=== PATIENT | male | born 1965 | race Caucasian/White ===

== ENCOUNTER 2017-10-11 12:36 | Emergency (ER) | payer OTHER ==
[~2017-10-11] VITALS: Ht 188 cm; Wt 92.0 kg
[~2017-10-11 12:36] MED LIST: CLIN-26 PO; NO HOME MEDS
[2017-10-11] MEDS ORDERED: PRED10TA23 PO (13:27)
[2017-10-11] MEDS ORDERED: AZIT-63 PO (13:27)
[2017-10-11] MEDS ORDERED: HYDR-565 PO (13:27)
[2017-10-11 13:44] VITALS: BP 103/66
== END 2017-10-11 13:52 | disposition home or self-care (01) ==
LOC: ER 12:37
DX: R05 Cough (principal); R07.81 Pleurodynia; J45.909 Unspecified asthma, uncomplicated
CPT/HCPCS: 99283

== ENCOUNTER 2017-10-18 01:40 | Inpatient (IN) | payer OTHER ==
[~2017-10-18] VITALS: Ht 188 cm; Wt 92.1 kg
[~2017-10-18 01:40] MED LIST changes: +AZIT-63 PO; +PRED10TA23 PO
[2017-10-18] MEDS ORDERED: ketorolac trometh inj. 60 MG/2 ML VIAL IM ONE (02:35)
[2017-10-18] MEDS ORDERED: ipratropium/albuterol 3ml nebule NEB ONE (03:25)
[2017-10-18] MEDS ORDERED: benzonatate 100mg capsule PO ONE (03:50)
[2017-10-18 03:52] LABS: BASOPHILS # (AUTO) 0.1 X10'3 (0-0.2); BASOPHILS % (AUTO) 0.7 % (0-1); EOSINOPHILS # (AUTO) 0.7 X10'3 (0-0.9); EOSINOPHILS % (AUTO) 6.2 % (0-6); HEMATOCRIT 37.5 % (42.0-52.0); HEMOGLOBIN 13.1 g/dl (14.0-17.9); LYMPHOCYTES % (AUTO) 17.1 % (21-51); MEAN CORPUSCULAR HEMOGLOBIN 28.3 PG (27.0-31.0); MEAN PLATELET VOLUME 7.1 FL (7.4-10.4); MONOCYTES # (AUTO) 0.7 X10'3 (0-0.9); MONOCYTES % (AUTO) 5.8 % (2-12); NEUTROPHILS # (AUTO) 8.1 X10'3 (1.8-7.7); NEUTROPHILS % (AUTO) 70.2 % (42-75); PLATELET COUNT 445 X10'3 (140-440); RED BLOOD COUNT 4.64 X10'6 (4.70-6.10); RED CELL DISTRIBUTION WIDTH 15.1 % (11.5-14.5); WHITE BLOOD COUNT 11.5 X10'3 (4.5-11.0)
[2017-10-18] MEDS ORDERED: azithromycin/NS 500mg/250ml 250 ML IV ONE (03:55)
[2017-10-18] MEDS ORDERED: normal saline 1000ML IV soln IVB ONE (03:55)
[2017-10-18] MEDS ORDERED: CefTRIAXone 2gm/NS 100ml IVPB 100 ML IV ONE (03:55)
[2017-10-18 04:10] LABS: D-DIMER 4.62 MG/L FEU (0-0.50); PROTHROMBIN TIME 10.6 SECONDS (9.0-12.0)
[2017-10-18 04:17] LABS: ALANINE AMINOTRANSFERASE 31 U/L (12-78); ALBUMIN 2.5 G/DL (3.4-5.0); ALBUMIN/GLOBULIN RATIO 0.5 (1.1-1.5); ALKALINE PHOSPHATASE 91 IU/L (46-116); ANION GAP 10 (8-16); ASPARTATE AMINO TRANSFERASE 13 U/L (10-37); BILIRUBIN,TOTAL 0.5 MG/DL (0.1-1.0); BLOOD UREA NITROGEN 15 MG/DL (7-18); BUN/CREATININE RATIO 17.2 (5.4-32.0); CALCIUM 8.7 MG/DL (8.5-10.1); CHLORIDE 101 MMOL/L (99-107); CREATININE 0.87 MG/DL (0.60-1.10); GLUCOSE 96 MG/DL (70-104); SODIUM 137 MMOL/L (135-145); TOTAL PROTEIN 7.4 G/DL (6.4-8.2); TROPONIN I < 0.04 NG/ML (0.0-0.05); eGFR > 90 ML/MIN
[2017-10-18] MEDS ORDERED: iohexol 350MG/ML 100ml bottle IV ONE (04:53)
[2017-10-18] MEDS ORDERED: enoxaparin 100mg/ml syringe SUBCUT ONE (05:25)
[2017-10-18] MEDS ORDERED: magnesium Cl slow-release 64mg tablet PO PRN (09:20)
[2017-10-18] MEDS ORDERED: ondansetron/PF 4mg/2ml inj IV PRN (09:20)
[2017-10-18] MEDS ORDERED: cefTRIAXone 1g/NS 100ml IVPB 100 ML IV ONE (09:20)
[2017-10-18] MEDS ORDERED: acetaminophen 325mg tablet PO PRN (09:20)
[2017-10-18] MEDS ORDERED: magnesium 2GM in 50ml NS 50 ML IV PRN (09:20)
[2017-10-18] MEDS ORDERED: mag hydrox/Alum hydrox/simeth 30ml oral suspension PO PRN (09:20)
[2017-10-18] MEDS ORDERED: doxycycline inj 100 MG in normal saline 100ml IV soln 100 ML IV ONE (09:20)
[2017-10-18] MEDS ORDERED: potassium Cl 20 mEq SR tablet PO PRN ×2 (09:20)
[2017-10-18] MEDS ORDERED: morphine 2 MG/ML inj. syringe IV PRN ×2 (09:20)
[2017-10-18] MEDS ORDERED: magnesium 4gm in 100ml NS 100 ML IV PRN (09:20)
[2017-10-18] MEDS ORDERED: magnesium hydroxide 30ml (MOM) UD suspension PO PRN (09:20)
[2017-10-18] MEDS ORDERED: potassium Cl 40MEQ/NS 500ml 500 ML IV PRN ×2 (09:20)
[2017-10-18 10:16] LABS: HEMATOCRIT 38.7 % (42.0-52.0); HEMOGLOBIN 13.2 g/dl (14.0-17.9); MEAN CORPUSCULAR HEMOGLOBIN 28.1 PG (27.0-31.0); MEAN CORPUSCULAR HGB CONC 34.2 % (33.0-36.5); MEAN CORPUSCULAR VOLUME 82.1 FL (78-98); PLATELET COUNT 475 X10'3 (140-440); RED BLOOD COUNT 4.71 X10'6 (4.70-6.10); RED CELL DISTRIBUTION WIDTH 15.4 % (11.5-14.5); WHITE BLOOD COUNT 8.5 X10'3 (4.5-11.0)
[2017-10-18 10:25] LABS: PROTHROMBIN TIME 10.7 SECONDS (9.0-12.0)
[2017-10-18 10:27] LABS: BLOOD UREA NITROGEN 16 MG/DL (7-18); CREATININE 0.95 MG/DL (0.60-1.10); eGFR 83 ML/MIN
[2017-10-18] MEDS ORDERED: albuterol 2.5 MG/3 ML nebule ONE (10:58)
[2017-10-18] MEDS: albuterol 2.5 MG/3 ML nebule NEB SCH ×4 (10:59→23:38)
[2017-10-18 11:05] VITALS: BP 130/72
[2017-10-18] MEDS: lactobacillus rhamnosus 10,000 MMU CELLS/CAPSULE PO SCH (17:37)
[2017-10-18 18:50] VITALS: BP 114/69
[2017-10-18] MEDS: enoxaparin 30mg/0.3ml syringe SUBCUT SCH (20:08)
[2017-10-18] MEDS: enoxaparin 60mg/0.6ml syringe SUBCUT SCH (20:09)
[2017-10-18] MEDS: doxycycline inj 100 MG in normal saline 100ml IV soln 100 ML IV SCH (20:17)
[2017-10-18] MEDS ORDERED: warfarin 5mg tablet PO ONE (21:00)
[2017-10-18] MEDS: HYDROcodone/acetaminophen 10/325mg tab PO PRN (21:42)
[2017-10-18 23:00] VITALS: BP 130/73
[2017-10-19] MEDS: albuterol 2.5 MG/3 ML nebule NEB SCH ×3 (03:34→10:55)
[2017-10-19 05:52] LABS: BASOPHILS % (AUTO) 0.4 % (0-1); EOSINOPHILS # (AUTO) 0.5 X10'3 (0-0.9); EOSINOPHILS % (AUTO) 5.1 % (0-6); HEMATOCRIT 38.6 % (42.0-52.0); HEMOGLOBIN 13.4 g/dl (14.0-17.9); LYMPHOCYTES # (AUTO) 1.6 X10'3 (1.1-4.8); LYMPHOCYTES % (AUTO) 15.4 % (21-51); MEAN CORPUSCULAR HEMOGLOBIN 28.2 PG (27.0-31.0); MEAN CORPUSCULAR HGB CONC 34.7 % (33.0-36.5); MEAN CORPUSCULAR VOLUME 81.5 FL (78-98); MONOCYTES # (AUTO) 0.6 X10'3 (0-0.9); MONOCYTES % (AUTO) 5.9 % (2-12); NEUTROPHILS # (AUTO) 7.4 X10'3 (1.8-7.7); NEUTROPHILS % (AUTO) 73.2 % (42-75); PLATELET COUNT 475 X10'3 (140-440); RED BLOOD COUNT 4.74 X10'6 (4.70-6.10); RED CELL DISTRIBUTION WIDTH 14.8 % (11.5-14.5); WHITE BLOOD COUNT 10.1 X10'3 (4.5-11.0)
[2017-10-19 06:03] LABS: PARTIAL THROMBOPLASTIN TIME 33 SECONDS (22-32); PROTHROMBIN TIME 10.5 SECONDS (9.0-12.0)
[2017-10-19 06:28] LABS: ALANINE AMINOTRANSFERASE 30 U/L (12-78); ALBUMIN 2.1 G/DL (3.4-5.0); ALBUMIN/GLOBULIN RATIO 0.4 (1.1-1.5); ALKALINE PHOSPHATASE 91 IU/L (46-116); ANION GAP 8 (8-16); ASPARTATE AMINO TRANSFERASE 16 U/L (10-37); BILIRUBIN,TOTAL 0.3 MG/DL (0.1-1.0); BLOOD UREA NITROGEN 12 MG/DL (7-18); BUN/CREATININE RATIO 12.2 (5.4-32.0); CALCIUM 8.6 MG/DL (8.5-10.1); CHLORIDE 103 MMOL/L (99-107); CHOL/HDL RATIO 3.9 (0.00-4.99); CHOLESTEROL 109 MG/DL (0-200); CREATININE 0.98 MG/DL (0.60-1.10); GLUCOSE 106 MG/DL (70-104); HDL CHOLESTEROL 28 MG/DL (35-60); LDL CHOLESTEROL 71 MG/DL (50-100); MAGNESIUM 1.9 MG/DL (1.5-2.4); POTASSIUM 4.4 MMOL/L (3.5-5.1); SODIUM 137 MMOL/L (135-145); TOTAL CARBON DIOXIDE 26.2 MMOL/L (24-32); TOTAL PROTEIN 6.9 G/DL (6.4-8.2); TRIGLYCERIDES 77 MG/DL (20-135); eGFR 80 ML/MIN
[2017-10-19 07:00] VITALS: BP 128/71
[2017-10-19] MEDS: K and/or MAG REPLACEMENT MC SCH (07:59)
[2017-10-19] MEDS: enoxaparin 60mg/0.6ml syringe SUBCUT SCH ×2 (08:05→21:04)
[2017-10-19] MEDS: enoxaparin 30mg/0.3ml syringe SUBCUT SCH ×2 (08:06→21:04)
[2017-10-19] MEDS: cefTRIAXone 1g/NS 100ml IVPB 100 ML IV SCH (08:06)
[2017-10-19] MEDS: lactobacillus rhamnosus 10,000 MMU CELLS/CAPSULE PO SCH ×2 (08:06→17:11)
[2017-10-19] MEDS: doxycycline inj 100 MG in normal saline 100ml IV soln 100 ML IV SCH ×2 (10:55→11:18)
[2017-10-19 11:00] VITALS: BP 115/62
[2017-10-19] MEDS: HYDROcodone/acetaminophen 10/325mg tab PO PRN ×2 (11:43→21:02)
[2017-10-19] MEDS: doxycycline hyclate 100mg tablet.DR PO SCH (17:11)
[2017-10-19 18:50] VITALS: BP 125/71
[2017-10-19] MEDS ORDERED: warfarin 5mg tablet PO ONE (21:00)
[2017-10-20] MEDS: HYDROcodone/acetaminophen 10/325mg tab PO PRN ×4 (02:05→23:47)
[2017-10-20 05:41] LABS: BASOPHILS % (AUTO) 0.4 % (0-1); EOSINOPHILS # (AUTO) 0.6 X10'3 (0-0.9); EOSINOPHILS % (AUTO) 5.8 % (0-6); HEMATOCRIT 39.5 % (42.0-52.0); HEMOGLOBIN 13.6 g/dl (14.0-17.9); LYMPHOCYTES # (AUTO) 1.6 X10'3 (1.1-4.8); LYMPHOCYTES % (AUTO) 16.5 % (21-51); MEAN CORPUSCULAR HEMOGLOBIN 28.1 PG (27.0-31.0); MEAN CORPUSCULAR HGB CONC 34.4 % (33.0-36.5); MEAN CORPUSCULAR VOLUME 81.5 FL (78-98); MONOCYTES # (AUTO) 0.7 X10'3 (0-0.9); MONOCYTES % (AUTO) 6.7 % (2-12); NEUTROPHILS # (AUTO) 6.8 X10'3 (1.8-7.7); NEUTROPHILS % (AUTO) 70.6 % (42-75); PLATELET COUNT 496 X10'3 (140-440); RED BLOOD COUNT 4.84 X10'6 (4.70-6.10); RED CELL DISTRIBUTION WIDTH 14.7 % (11.5-14.5); WHITE BLOOD COUNT 9.6 X10'3 (4.5-11.0)
[2017-10-20 06:02] LABS: PARTIAL THROMBOPLASTIN TIME 34 SECONDS (22-32); PROTHROMBIN TIME 10.6 SECONDS (9.0-12.0)
[2017-10-20 06:29] LABS: HEMOGLOBIN A1C 6.3 % (4.5-6.2)
[2017-10-20 06:34] LABS: ALANINE AMINOTRANSFERASE 35 U/L (12-78); ALBUMIN 2.3 G/DL (3.4-5.0); ALBUMIN/GLOBULIN RATIO 0.5 (1.1-1.5); ALKALINE PHOSPHATASE 100 IU/L (46-116); ANION GAP 8 (8-16); ASPARTATE AMINO TRANSFERASE 18 U/L (10-37); BILIRUBIN,TOTAL 0.3 MG/DL (0.1-1.0); BLOOD UREA NITROGEN 14 MG/DL (7-18); BUN/CREATININE RATIO 11.8 (5.4-32.0); CALCIUM 8.9 MG/DL (8.5-10.1); CHLORIDE 100 MMOL/L (99-107); CREATININE 1.19 MG/DL (0.60-1.10); GLUCOSE 98 MG/DL (70-104); POTASSIUM 4.3 MMOL/L (3.5-5.1); SODIUM 137 MMOL/L (135-145); TOTAL CARBON DIOXIDE 28.6 MMOL/L (24-32); TOTAL PROTEIN 7.4 G/DL (6.4-8.2); eGFR 64 ML/MIN
[2017-10-20] MEDS: acetaminophen 325mg tablet PO PRN (06:50)
[2017-10-20] MEDS: doxycycline hyclate 100mg tablet.DR PO SCH ×2 (06:50→16:57)
[2017-10-20] MEDS: lactobacillus rhamnosus 10,000 MMU CELLS/CAPSULE PO SCH ×2 (06:51→16:57)
[2017-10-20 07:30] VITALS: BP 118/77
[2017-10-20] MEDS: K and/or MAG REPLACEMENT MC SCH (08:00)
[2017-10-20] MEDS: enoxaparin 60mg/0.6ml syringe SUBCUT SCH ×2 (08:29→20:53)
[2017-10-20] MEDS: enoxaparin 30mg/0.3ml syringe SUBCUT SCH ×2 (08:30→20:54)
[2017-10-20] MEDS: cefTRIAXone 1g/NS 100ml IVPB 100 ML IV SCH (08:38)
[2017-10-20 11:00] VITALS: BP 113/69
[2017-10-20 18:40] VITALS: BP 132/67
[2017-10-20] MEDS ORDERED: warfarin 7.5mg tablet PO ONE (21:00)
[2017-10-20] MEDS: albuterol 2.5 MG/3 ML nebule NEB PRN (22:17)
[2017-10-21] VITALS: BP 106/65
[2017-10-21 05:14] LABS: BASOPHILS % (AUTO) 0.5 % (0-1); EOSINOPHILS # (AUTO) 0.5 X10'3 (0-0.9); EOSINOPHILS % (AUTO) 5.2 % (0-6); HEMOGLOBIN 14.5 g/dl (14.0-17.9); LYMPHOCYTES # (AUTO) 1.9 X10'3 (1.1-4.8); LYMPHOCYTES % (AUTO) 21.4 % (21-51); MEAN CORPUSCULAR HEMOGLOBIN 27.6 PG (27.0-31.0); MEAN CORPUSCULAR HGB CONC 33.8 % (33.0-36.5); MEAN CORPUSCULAR VOLUME 81.8 FL (78-98); MONOCYTES # (AUTO) 0.6 X10'3 (0-0.9); MONOCYTES % (AUTO) 6.7 % (2-12); NEUTROPHILS # (AUTO) 5.8 X10'3 (1.8-7.7); NEUTROPHILS % (AUTO) 66.2 % (42-75); PLATELET COUNT 561 X10'3 (140-440); RED BLOOD COUNT 5.26 X10'6 (4.70-6.10); RED CELL DISTRIBUTION WIDTH 14.9 % (11.5-14.5); WHITE BLOOD COUNT 8.7 X10'3 (4.5-11.0)
[2017-10-21 05:33] LABS: INR 1.1 INR; PARTIAL THROMBOPLASTIN TIME 34 SECONDS (22-32); PROTHROMBIN TIME 11.8 SECONDS (9.0-12.0)
[2017-10-21 05:39] LABS: ALANINE AMINOTRANSFERASE 128 U/L (12-78); ALBUMIN 2.5 G/DL (3.4-5.0); ALBUMIN/GLOBULIN RATIO 0.5 (1.1-1.5); ALKALINE PHOSPHATASE 147 IU/L (46-116); ANION GAP 5 (8-16); ASPARTATE AMINO TRANSFERASE 87 U/L (10-37); BILIRUBIN,TOTAL 0.2 MG/DL (0.1-1.0); BLOOD UREA NITROGEN 12 MG/DL (7-18); CHLORIDE 100 MMOL/L (99-107); CREATININE 1.09 MG/DL (0.60-1.10); GLUCOSE 96 MG/DL (70-104); MAGNESIUM 2.1 MG/DL (1.5-2.4); POTASSIUM 4.9 MMOL/L (3.5-5.1); SODIUM 136 MMOL/L (135-145); TOTAL CARBON DIOXIDE 31.3 MMOL/L (24-32); TOTAL PROTEIN 7.8 G/DL (6.4-8.2); eGFR 71 ML/MIN
[2017-10-21] MEDS: albuterol 2.5 MG/3 ML nebule NEB PRN ×2 (07:22→21:13)
[2017-10-21 07:38] VITALS: BP 104/66
[2017-10-21] MEDS: K and/or MAG REPLACEMENT MC SCH (08:00)
[2017-10-21] MEDS: cefTRIAXone 1g/NS 100ml IVPB 100 ML IV SCH (08:29)
[2017-10-21] MEDS: doxycycline hyclate 100mg tablet.DR PO SCH ×2 (08:30→17:49)
[2017-10-21] MEDS: lactobacillus rhamnosus 10,000 MMU CELLS/CAPSULE PO SCH ×2 (08:30→17:47)
[2017-10-21] MEDS: enoxaparin 30mg/0.3ml syringe SUBCUT SCH ×2 (08:33→21:16)
[2017-10-21] MEDS: enoxaparin 60mg/0.6ml syringe SUBCUT SCH ×2 (08:34→21:15)
[2017-10-21 20:00] VITALS: BP 122/43
[2017-10-21] MEDS ORDERED: warfarin 10mg tablet PO ONE (21:00)
[2017-10-22] VITALS: BP 105/64
[2017-10-22 05:40] LABS: INR 1.2 INR; PROTHROMBIN TIME 12.1 SECONDS (9.0-12.0)
[2017-10-22 05:45] LABS: BASOPHILS # (AUTO) 0.1 X10'3 (0-0.2); BASOPHILS % (AUTO) 0.6 % (0-1); EOSINOPHILS # (AUTO) 0.4 X10'3 (0-0.9); EOSINOPHILS % (AUTO) 4.5 % (0-6); HEMATOCRIT 44.6 % (42.0-52.0); HEMOGLOBIN 15.1 g/dl (14.0-17.9); LYMPHOCYTES # (AUTO) 1.9 X10'3 (1.1-4.8); MEAN CORPUSCULAR HEMOGLOBIN 27.5 PG (27.0-31.0); MEAN CORPUSCULAR HGB CONC 33.9 % (33.0-36.5); MEAN CORPUSCULAR VOLUME 81.1 FL (78-98); MEAN PLATELET VOLUME 6.9 FL (7.4-10.4); MONOCYTES # (AUTO) 0.7 X10'3 (0-0.9); NEUTROPHILS % (AUTO) 65.9 % (42-75); PLATELET COUNT 611 X10'3 (140-440); RED CELL DISTRIBUTION WIDTH 14.9 % (11.5-14.5); WHITE BLOOD COUNT 9.1 X10'3 (4.5-11.0)
[2017-10-22 05:58] LABS: ALANINE AMINOTRANSFERASE 322 U/L (12-78); ALBUMIN 2.7 G/DL (3.4-5.0); ALBUMIN/GLOBULIN RATIO 0.5 (1.1-1.5); ALKALINE PHOSPHATASE 205 IU/L (46-116); ANION GAP 8 (8-16); ASPARTATE AMINO TRANSFERASE 220 U/L (10-37); BILIRUBIN,TOTAL 0.2 MG/DL (0.1-1.0); BLOOD UREA NITROGEN 15 MG/DL (7-18); BUN/CREATININE RATIO 13.5 (5.4-32.0); CALCIUM 9.1 MG/DL (8.5-10.1); CHLORIDE 100 MMOL/L (99-107); CREATININE 1.11 MG/DL (0.60-1.10); GLUCOSE 102 MG/DL (70-104); MAGNESIUM 2.4 MG/DL (1.5-2.4); POTASSIUM 4.9 MMOL/L (3.5-5.1); SODIUM 138 MMOL/L (135-145); TOTAL PROTEIN 8.5 G/DL (6.4-8.2); eGFR 69 ML/MIN
[2017-10-22 06:00] VITALS: BP 136/76
[2017-10-22] MEDS: cefTRIAXone 1g/NS 100ml IVPB 100 ML IV SCH (07:36)
[2017-10-22] MEDS: lactobacillus rhamnosus 10,000 MMU CELLS/CAPSULE PO SCH ×2 (07:37→18:10)
[2017-10-22] MEDS: doxycycline hyclate 100mg tablet.DR PO SCH ×2 (07:37→18:10)
[2017-10-22] MEDS: enoxaparin 60mg/0.6ml syringe SUBCUT SCH ×2 (07:37→20:27)
[2017-10-22] MEDS: enoxaparin 30mg/0.3ml syringe SUBCUT SCH ×2 (07:38→20:26)
[2017-10-22] MEDS: K and/or MAG REPLACEMENT MC SCH (07:38)
[2017-10-22 08:49] LABS: HEMATOCRIT 41.2 % (42.0-52.0); HEMOGLOBIN 14.2 g/dl (14.0-17.9); MEAN CORPUSCULAR HEMOGLOBIN 27.7 PG (27.0-31.0); MEAN CORPUSCULAR HGB CONC 34.4 % (33.0-36.5); MEAN CORPUSCULAR VOLUME 80.5 FL (78-98); MEAN PLATELET VOLUME 6.9 FL (7.4-10.4); PLATELET COUNT 596 X10'3 (140-440); RED BLOOD COUNT 5.12 X10'6 (4.70-6.10); RED CELL DISTRIBUTION WIDTH 14.9 % (11.5-14.5); WHITE BLOOD COUNT 8.5 X10'3 (4.5-11.0)
[2017-10-22 11:30] VITALS: BP 112/70
[2017-10-22 20:00] VITALS: BP 115/90
[2017-10-22] MEDS ORDERED: warfarin 10mg tablet PO ONE (21:00)
[2017-10-23 06:12] LABS: INR 1.1 INR; PROTHROMBIN TIME 11.4 SECONDS (9.0-12.0)
[2017-10-23 06:19] LABS: BASOPHILS # (AUTO) 0.1 X10'3 (0-0.2); BASOPHILS % (AUTO) 0.9 % (0-1); EOSINOPHILS # (AUTO) 0.4 X10'3 (0-0.9); EOSINOPHILS % (AUTO) 4.8 % (0-6); HEMATOCRIT 43.4 % (42.0-52.0); HEMOGLOBIN 14.8 g/dl (14.0-17.9); LYMPHOCYTES # (AUTO) 2.2 X10'3 (1.1-4.8); LYMPHOCYTES % (AUTO) 23.6 % (21-51); MEAN CORPUSCULAR HEMOGLOBIN 27.6 PG (27.0-31.0); MEAN CORPUSCULAR HGB CONC 34.1 % (33.0-36.5); MEAN CORPUSCULAR VOLUME 81.1 FL (78-98); MEAN PLATELET VOLUME 7.1 FL (7.4-10.4); MONOCYTES # (AUTO) 0.9 X10'3 (0-0.9); MONOCYTES % (AUTO) 9.8 % (2-12); NEUTROPHILS # (AUTO) 5.7 X10'3 (1.8-7.7); NEUTROPHILS % (AUTO) 60.9 % (42-75); PLATELET COUNT 620 X10'3 (140-440); RED BLOOD COUNT 5.34 X10'6 (4.70-6.10); RED CELL DISTRIBUTION WIDTH 14.9 % (11.5-14.5); WHITE BLOOD COUNT 9.3 X10'3 (4.5-11.0)
[2017-10-23 06:21] LABS: ALANINE AMINOTRANSFERASE 382 U/L (12-78); ALBUMIN 2.7 G/DL (3.4-5.0); ALBUMIN/GLOBULIN RATIO 0.5 (1.1-1.5); ALKALINE PHOSPHATASE 217 IU/L (46-116); ANION GAP 9 (8-16); ASPARTATE AMINO TRANSFERASE 153 U/L (10-37); BILIRUBIN,TOTAL 0.3 MG/DL (0.1-1.0); BLOOD UREA NITROGEN 18 MG/DL (7-18); BUN/CREATININE RATIO 16.1 (5.4-32.0); CALCIUM 9.1 MG/DL (8.5-10.1); CHLORIDE 100 MMOL/L (99-107); CREATININE 1.12 MG/DL (0.60-1.10); GLUCOSE 111 MG/DL (70-104); MAGNESIUM 2.2 MG/DL (1.5-2.4); POTASSIUM 4.5 MMOL/L (3.5-5.1); SODIUM 136 MMOL/L (135-145); TOTAL PROTEIN 8.3 G/DL (6.4-8.2); eGFR 69 ML/MIN
[2017-10-23] MEDS: lactobacillus rhamnosus 10,000 MMU CELLS/CAPSULE PO SCH ×2 (07:30→18:54)
[2017-10-23 08:00] VITALS: BP 106/74
[2017-10-23] MEDS: K and/or MAG REPLACEMENT MC SCH (08:00)
[2017-10-23] MEDS: enoxaparin 30mg/0.3ml syringe SUBCUT SCH ×2 (08:00→21:03)
[2017-10-23] MEDS: albuterol 2.5 MG/3 ML nebule NEB PRN (08:12)
[2017-10-23] MEDS: doxycycline hyclate 100mg tablet.DR PO SCH ×2 (09:10→18:54)
[2017-10-23] MEDS: enoxaparin 60mg/0.6ml syringe SUBCUT SCH ×2 (09:11→21:04)
[2017-10-23] MEDS: cefTRIAXone 1g/NS 100ml IVPB 100 ML IV SCH (10:13)
[2017-10-23 11:00] VITALS: BP 127/79
[2017-10-23 20:00] VITALS: BP 112/67
[2017-10-23] MEDS ORDERED: warfarin 5mg tablet PO ONE (21:00)
[2017-10-24] VITALS: BP 115/70
[2017-10-24 05:41] LABS: INR 1.7 INR; PROTHROMBIN TIME 17.5 SECONDS (9.0-12.0)
[2017-10-24 07:00] VITALS: BP 123/75
[2017-10-24] MEDS: K and/or MAG REPLACEMENT MC SCH (08:00)
[2017-10-24] MEDS: lactobacillus rhamnosus 10,000 MMU CELLS/CAPSULE PO SCH ×2 (08:37→17:11)
[2017-10-24] MEDS: cefTRIAXone 1g/NS 100ml IVPB 100 ML IV SCH (08:37)
[2017-10-24] MEDS: enoxaparin 60mg/0.6ml syringe SUBCUT SCH ×2 (08:39→19:48)
[2017-10-24] MEDS: enoxaparin 30mg/0.3ml syringe SUBCUT SCH ×2 (08:39→19:48)
[2017-10-24] MEDS: doxycycline hyclate 100mg tablet.DR PO SCH ×2 (08:55→17:11)
[2017-10-24 11:00] VITALS: BP 145/72
[2017-10-24 11:12] LABS: HBSAG SCREEN Negative (Negative); HEP A AB, IGM Negative (Negative); HEP B CORE AB, IGM Negative (Negative); HEPATITIS C ANTIBODY 0.2 s/co ratio (0.0-0.9)
[2017-10-24 20:00] VITALS: BP 129/73
[2017-10-24] MEDS ORDERED: warfarin 3mg tablet PO ONE (21:00)
[2017-10-25] VITALS: BP 115/63
[2017-10-25 06:00] VITALS: BP 126/78
[2017-10-25] MEDS: lactobacillus rhamnosus 10,000 MMU CELLS/CAPSULE PO SCH ×2 (07:49→17:16)
[2017-10-25] MEDS: doxycycline hyclate 100mg tablet.DR PO SCH ×2 (07:49→17:16)
[2017-10-25] MEDS: cefTRIAXone 1g/NS 100ml IVPB 100 ML IV SCH (07:50)
[2017-10-25] MEDS: enoxaparin 60mg/0.6ml syringe SUBCUT SCH ×2 (07:51→20:00)
[2017-10-25] MEDS: enoxaparin 30mg/0.3ml syringe SUBCUT SCH ×2 (07:52→20:00)
[2017-10-25] MEDS: K and/or MAG REPLACEMENT MC SCH (07:52)
[2017-10-25] MEDS: acetaminophen 325mg tablet PO PRN (08:10)
[2017-10-25 08:12] LABS: HEMATOCRIT 40.6 % (42.0-52.0); HEMOGLOBIN 13.9 g/dl (14.0-17.9); MEAN CORPUSCULAR HEMOGLOBIN 27.6 PG (27.0-31.0); MEAN CORPUSCULAR HGB CONC 34.3 % (33.0-36.5); MEAN CORPUSCULAR VOLUME 80.6 FL (78-98); PLATELET COUNT 604 X10'3 (140-440); RED BLOOD COUNT 5.03 X10'6 (4.70-6.10); RED CELL DISTRIBUTION WIDTH 14.7 % (11.5-14.5); WHITE BLOOD COUNT 6.3 X10'3 (4.5-11.0)
[2017-10-25 08:45] LABS: INR 3.2 INR; PROTHROMBIN TIME 31.6 SECONDS (9.0-12.0)
[2017-10-25 11:00] VITALS: BP 123/77
[2017-10-25 16:19] LABS: BASOPHILS # (AUTO) 0.1 X10'3 (0-0.2); EOSINOPHILS # (AUTO) 0.3 X10'3 (0-0.9); EOSINOPHILS % (AUTO) 5.9 % (0-6); LYMPHOCYTES % (AUTO) 37.1 % (21-51); MEAN CORPUSCULAR HEMOGLOBIN 27.9 PG (27.0-31.0); MEAN CORPUSCULAR VOLUME 81.8 FL (78-98); MEAN PLATELET VOLUME 7.1 FL (7.4-10.4); MONOCYTES # (AUTO) 0.6 X10'3 (0-0.9); MONOCYTES % (AUTO) 10.6 % (2-12); NEUTROPHILS # (AUTO) 2.5 X10'3 (1.8-7.7); NEUTROPHILS % (AUTO) 45.4 % (42-75); PLATELET COUNT 632 X10'3 (140-440); RED BLOOD COUNT 5.01 X10'6 (4.70-6.10); RED CELL DISTRIBUTION WIDTH 14.7 % (11.5-14.5); WHITE BLOOD COUNT 5.5 X10'3 (4.5-11.0)
[2017-10-25 16:33] LABS: ALANINE AMINOTRANSFERASE 187 U/L (12-78); ALBUMIN 2.9 G/DL (3.4-5.0); ALBUMIN/GLOBULIN RATIO 0.6 (1.1-1.5); ALKALINE PHOSPHATASE 158 IU/L (46-116); ANION GAP 8 (8-16); ASPARTATE AMINO TRANSFERASE 43 U/L (10-37); BILIRUBIN,TOTAL 0.2 MG/DL (0.1-1.0); BLOOD UREA NITROGEN 16 MG/DL (7-18); BUN/CREATININE RATIO 16.7 (5.4-32.0); CALCIUM 8.5 MG/DL (8.5-10.1); CHLORIDE 103 MMOL/L (99-107); CREATININE 0.96 MG/DL (0.60-1.10); GLUCOSE 110 MG/DL (70-104); POTASSIUM 3.9 MMOL/L (3.5-5.1); SODIUM 141 MMOL/L (135-145); TOTAL CARBON DIOXIDE 30.5 MMOL/L (24-32); TOTAL PROTEIN 7.8 G/DL (6.4-8.2); eGFR 82 ML/MIN
[2017-10-25] MEDS: levoFLOXACIN-Levaquin 500mg/D5 100 ML IV SCH (17:17)
[2017-10-25 19:00] VITALS: BP 116/58
[2017-10-25] MEDS ORDERED: barium sulfate 450ml oral suspension PO SCH (21:00)
[2017-10-25] MEDS: diatr meglu/diatrizoate 30ml oral sol.-(3 dose) bottle PO SCH (21:34)
[2017-10-26] VITALS: BP 120/63
[2017-10-26] MEDS ORDERED: LORazepam 1 MG tablet PO PRN (05:00)
[2017-10-26 07:00] VITALS: BP 103/70
[2017-10-26] MEDS: doxycycline hyclate 100mg tablet.DR PO SCH (07:07)
[2017-10-26] MEDS: lactobacillus rhamnosus 10,000 MMU CELLS/CAPSULE PO SCH (07:07)
[2017-10-26] MEDS: levoFLOXACIN-Levaquin 500mg/D5 100 ML IV SCH (07:07)
[2017-10-26] MEDS: diatr meglu/diatrizoate 30ml oral sol.-(3 dose) bottle PO SCH ×2 (07:10→09:05)
[2017-10-26 07:41] LABS: INR 2.1 INR; PROTHROMBIN TIME 21.3 SECONDS (9.0-12.0)
[2017-10-26] MEDS: K and/or MAG REPLACEMENT MC SCH (08:00)
[2017-10-26] MEDS: cefTRIAXone 1g/NS 100ml IVPB 100 ML IV SCH (09:01)
[2017-10-26] MEDS ORDERED: iohexol 300mg/ml 100ml inj. ONE (09:53)
[2017-10-26] MEDS ORDERED: warfarin 10mg tablet PO STA (13:57)
[2017-10-26] MEDS ORDERED: AZIT500T3 PO (13:58)
[2017-10-26 14:02] LABS: BASOPHILS # (AUTO) 0.1 X10'3 (0-0.2); BASOPHILS % (AUTO) 0.9 % (0-1); EOSINOPHILS # (AUTO) 0.3 X10'3 (0-0.9); EOSINOPHILS % (AUTO) 4.1 % (0-6); HEMATOCRIT 41.3 % (42.0-52.0); HEMOGLOBIN 14.2 g/dl (14.0-17.9); LYMPHOCYTES # (AUTO) 2.2 X10'3 (1.1-4.8); LYMPHOCYTES % (AUTO) 28.5 % (21-51); MEAN CORPUSCULAR HEMOGLOBIN 28.1 PG (27.0-31.0); MEAN CORPUSCULAR HGB CONC 34.2 % (33.0-36.5); MEAN CORPUSCULAR VOLUME 82.1 FL (78-98); MEAN PLATELET VOLUME 7.4 FL (7.4-10.4); MONOCYTES # (AUTO) 0.7 X10'3 (0-0.9); MONOCYTES % (AUTO) 8.9 % (2-12); NEUTROPHILS # (AUTO) 4.5 X10'3 (1.8-7.7); NEUTROPHILS % (AUTO) 57.6 % (42-75); PLATELET COUNT 590 X10'3 (140-440); RED BLOOD COUNT 5.04 X10'6 (4.70-6.10); RED CELL DISTRIBUTION WIDTH 14.4 % (11.5-14.5); WHITE BLOOD COUNT 7.8 X10'3 (4.5-11.0)
[2017-10-26 14:06] LABS: ALANINE AMINOTRANSFERASE 174 U/L (12-78); ALBUMIN 2.9 G/DL (3.4-5.0); ALBUMIN/GLOBULIN RATIO 0.6 (1.1-1.5); ALKALINE PHOSPHATASE 145 IU/L (46-116); ANION GAP 8 (8-16); ASPARTATE AMINO TRANSFERASE 57 U/L (10-37); BILIRUBIN,TOTAL 0.2 MG/DL (0.1-1.0); BLOOD UREA NITROGEN 18 MG/DL (7-18); BUN/CREATININE RATIO 16.5 (5.4-32.0); CALCIUM 8.9 MG/DL (8.5-10.1); CHLORIDE 105 MMOL/L (99-107); CREATININE 1.09 MG/DL (0.60-1.10); GLUCOSE 91 MG/DL (70-104); SODIUM 139 MMOL/L (135-145); TOTAL CARBON DIOXIDE 26.2 MMOL/L (24-32); TOTAL PROTEIN 7.9 G/DL (6.4-8.2); eGFR 71 ML/MIN
[2017-10-26] MEDS ORDERED: WARF3TAB PO (14:29)
[2017-10-26] MEDS ORDERED: warfarin 10mg tablet PO ONE (21:00)
== END 2017-10-26 14:30 | disposition home or self-care (01) | DRG 175 ==
LOC: ER 01:40 → ED HOLD 09:19 → EDBEDREQ 09:55 → SUR 3N 11:27
PROVIDERS: ADMIT Legal Medicine; ATTEND Legal Medicine
PROC: B32T1ZZ Computerized Tomography (CT Scan) of Left Pulmonary Artery using Low Osmolar Contrast (ICD-10-PCS; 2017-10-18)
PROC: B3201ZZ Computerized Tomography (CT Scan) of Thoracic Aorta using Low Osmolar Contrast (ICD-10-PCS; 2017-10-18)
PROC: B32S1ZZ Computerized Tomography (CT Scan) of Right Pulmonary Artery using Low Osmolar Contrast (ICD-10-PCS; 2017-10-18)
PROC: BW251ZZ Computerized Tomography (CT Scan) of Chest, Abdomen and Pelvis using Low Osmolar Contrast (ICD-10-PCS; principal; 2017-10-26)
DX: I26.99 Other pulmonary embolism without acute cor pulmonale (principal); J18.9 Pneumonia, unspecified organism; R79.89 Other specified abnormal findings of blood chemistry; J45.909 Unspecified asthma, uncomplicated; Z79.01 Long term (current) use of anticoagulants
CPT/HCPCS: 36415; 71046; 71260; 71275; 74177; 76700; 80053; 80061; 80074; 82103; 82565; 83036; 83605; 83735; 83880; 84145; 84484; 84520; 85025; 85027; 85379; 85610; 85730; 86706; 87040; 87070; 93005; 94640; 94760; 96365; 96367; 96372; 99285; J0456; J0696; J1650; J1885; J1956; J3490; J7030; Q9963; Q9967

== ENCOUNTER 2022-09-25 02:46 | Emergency (ER) | payer MEDICAID, OTHER ==
[~2022-09-25] VITALS: Ht 188 cm; Wt 96.3 kg
[~2022-09-25 02:46] MED LIST changes: -AZIT-63 PO; -CLIN-26 PO; -PRED10TA23 PO; +WARF3TAB PO
[2022-09-25 03:04] VITALS: BP 140/82
[2022-09-25] MEDS ORDERED: proparacaine 0.5% ophthalmic drops 15ml RIGHTEYE ONE (05:45)
[2022-09-25] MEDS ORDERED: erythromycin ophthalmic ointment 1gm tube RIGHTEYE ONE ×2 (06:40→06:45)
[2022-09-25] MEDS ORDERED: IBUP-1986 PO (06:41)
[2022-09-25] MEDS ORDERED: ERYT1OIN6 RIGHTEYE (06:41)
== END 2022-09-25 07:50 | disposition home or self-care (01) ==
LOC: ER 02:47
DX: S05.01XA Injury of conjunctiva and corneal abrasion without foreign body, right eye, initial encounter (principal); J45.909 Unspecified asthma, uncomplicated; Z88.8 Allergy status to other drugs, medicaments and biological substances; Z79.01 Long term (current) use of anticoagulants; Z79.899 Other long term (current) drug therapy; X58.XXXA Exposure to other specified factors, initial encounter; Y93.89 Activity, other specified; Y92.89 Other specified places as the place of occurrence of the external cause; Y99.8 Other external cause status
CPT/HCPCS: 99283; A6410

== ENCOUNTER 2024-03-10 09:47 | Emergency (ER) | payer MEDICAID ==
[~2024-03-10] VITALS: Ht 175.3 cm; Wt 78.2 kg
[~2024-03-10 09:47] MED LIST changes: +IBUP-1986 PO
[2024-03-10 09:54] VITALS: TEMP 97.9
[2024-03-10] MEDS: vancomycin/NS 1 GM ADD-VANTAGE 250 ML IV ONE (11:17)
[2024-03-10] MEDS: normal saline 1000ML IV soln IV ONE (11:17)
[2024-03-10] MEDS: piperacillin/tazo 3.375gm/50ml 50 ML IV ONE (11:17)
[2024-03-10 11:20] LABS: BASOPHILS # (AUTO) 0.1 X10'3 (0-0.2); BASOPHILS % (AUTO) 0.6 % (0-1); EOSINOPHILS # (AUTO) 0.4 X10'3 (0-0.9); EOSINOPHILS % (AUTO) 3.9 % (0-6); HEMATOCRIT 44.8 % (42.0-52.0); HEMOGLOBIN 14.9 g/dl (14.0-17.9); LYMPHOCYTES # (AUTO) 1.8 X10'3 (1.1-4.8); LYMPHOCYTES % (AUTO) 17.6 % (21-51); MEAN CORPUSCULAR HEMOGLOBIN 29.6 PG (27.0-31.0); MEAN CORPUSCULAR HGB CONC 33.3 g/dL (33.0-36.5); MEAN PLATELET VOLUME 7.8 FL (7.4-10.4); MONOCYTES # (AUTO) 1.4 X10'3 (0-0.9); MONOCYTES % (AUTO) 13.7 % (2-12); NEUTROPHILS # (AUTO) 6.4 X10'3 (1.8-7.7); NEUTROPHILS % (AUTO) 64.2 % (42-75); PLATELET COUNT 301 X10'3 (140-440); RED BLOOD COUNT 5.03 X10'6 (4.70-6.10)
[2024-03-10 11:34] LABS: ALANINE AMINOTRANSFERASE 33 U/L (12-78); ALBUMIN 3.3 G/DL (3.4-5.0); ALBUMIN/GLOBULIN RATIO 0.8 (1.1-1.5); ALKALINE PHOSPHATASE 99 IU/L (46-116); ANION GAP 10 (8-16); ASPARTATE AMINO TRANSFERASE 18 U/L (10-37); BILIRUBIN,DIRECT 0.1 MG/DL (0-0.3); BILIRUBIN,TOTAL 0.4 MG/DL (0.1-1.0); BLOOD UREA NITROGEN 20 MG/DL (7-18); BUN/CREATININE RATIO 16.7 (10.0-20.0); CALCIUM 8.6 MG/DL (8.5-10.1); CHLORIDE 100 MMOL/L (99-107); GLUCOSE 99 MG/DL (70-104); MAGNESIUM 2.1 MG/DL (1.5-2.4); POTASSIUM 3.8 MMOL/L (3.5-5.1); SODIUM 136 MMOL/L (135-145); TOTAL CARBON DIOXIDE 26.4 MMOL/L (24-32); TOTAL PROTEIN 7.7 G/DL (6.4-8.2); eCRCL 66 ML/MIN; eGFR 62 ML/MIN
[2024-03-10] MEDS ORDERED: CEPH500C3 PO (11:48)
[2024-03-10] MEDS ORDERED: SULF1TAB49 PO (11:48)
[2024-03-10 12:43] VITALS: BP 107/72; PULSE 68; RESP 16; O2SAT 95
== END 2024-03-10 12:55 | disposition home or self-care (01) ==
LOC: ER 09:47
DX: L03.116 Cellulitis of left lower limb (principal); M79.661 Pain in right lower leg; J45.909 Unspecified asthma, uncomplicated; R50.9 Fever, unspecified; Z79.1 Long term (current) use of non-steroidal anti-inflammatories (NSAID); Z79.899 Other long term (current) drug therapy
CPT/HCPCS: 36415; 71045; 80048; 80076; 83605; 83735; 84145; 85025; 87040; 93005; 96365; 96366; 96368; 99285; J2543; J3370; J7030